=== PATIENT | female | born 1945 | race Caucasian/White ===

== ENCOUNTER 2021-01-07 00:30 | Inpatient (IN) ==
[2021-01-07] MEDS ORDERED: SODIUM CHLORIDE 0.9% 500 ML IV STA (01:19)
[2021-01-07] MEDS ORDERED: ONDANSETRON 4 MG/2 ML VIAL IV STA (01:19)
[2021-01-07] MEDS ORDERED: HYDROmorphone 2 MG/1 ML VIAL IV STA (01:19)
[2021-01-07] MEDS ORDERED: PANTOPRAZOLE 40 MG VIAL IV STA (01:19)
[2021-01-07 01:31] LABS: Basophils % 0.1 % (0.0-0.8); Eosinophils % 0.1 % (0.00-10.9); Hematocrit 45.1 VOL% (35.7-47.0); Hemoglobin 14.7 GM/DL (12.0-16.0); Immature Granulocytes % 0.4 %; Immature Granulocytes Absolute 0.06 #; Lymphocytes # 2.2 10*3/uL (1.4-4.0); Lymphocytes % 13.6 % (21.3-54.2); Mean Corpuscular HGB Conc 32.6 GM/DL (32-36); Mean Corpuscular Volume 91.9 FL (87-102); Mean Platelet Volume 10.7 FL (9.6-12.0); Monocytes % 7.7 % (1.7-12.7); Neutrophils % 78.1 % (38.7-73.9); Platelet Count 258 T/CUMM (130-400); Red Blood Count 4.91 MC/CUMM (3.8-5.5); Red Cell Distribution Width 14.2 % (9.3-17.3); White Blood Count 16.5 T/CUMM (4-12)
[2021-01-07 01:47] LABS: Albumin 3.8 G/DL (3.4-5.0); Bilirubin,Total 0.7 MG/DL (0.20-1.00); Calcium 9.3 MG/DL (8.5-10.1); Osmolality,Calculated 275.7 MOS/KG (273-304); Potassium 3.4 MMOL/L (3.5-5.1)
[2021-01-07 01:51] LABS: Bilirubin,Urine Negative (Negative); Blood, Urine Moderate mg/dL (Negative); Glucose,Urine (UA) Negative (Negative); Hyaline Casts,Urine 2 /LPF (0-3); Ketones,Urine 20 mg/dL (Negative); Mucus,Urine Many /LPF (Occasional); Nitrite,Urine Negative (Negative); Protein,Urine Negative; RBC,Urine 36 /HPF (0-4); Squamous Epithelial Cell,Urine Occasional /HPF (0-10); Urine Appearance Slightly Hazy (Clear); Urine Color Yellow (Yellow); Urine Specific Gravity 1.026 (1.001-1.035); Urine Urobilinogen < 2.0 EU/DL (0.2-1.0)
[2021-01-07] MEDS ORDERED: fentaNYL 100 MCG/2 ML VIAL ONE ×2 (06:48→08:12)
[2021-01-07] MEDS ORDERED: PHENYLEPHRINE 1 MG/10 ML SYRINGE IV ONE (06:48)
[2021-01-07] MEDS ORDERED: SEVOFLURANE 1 UNIT/15 MINUTE INH ONE (06:48)
[2021-01-07] MEDS ORDERED: ACETAMINOPHEN INJ 1,000 MG/100 ML VIAL IV ONE (06:48)
[2021-01-07] MEDS ORDERED: LIDOCAINE 2% 5 ML VIAL ONE (06:48)
[2021-01-07] MEDS ORDERED: propofoL 200 MG/20 ML VIAL IV ONE (06:48)
[2021-01-07] MEDS ORDERED: ONDANSETRON 4 MG/2 ML VIAL ONE (06:48)
[2021-01-07] MEDS ORDERED: ROCURONIUM 50 MG/5 ML VIAL IV ONE (06:48)
[2021-01-07] MEDS ORDERED: SUCCINYLCHOLINE 200 MG/10 ML VIAL ONE (06:49)
[2021-01-07] MEDS ORDERED: ONDANSETRON 4 MG/2 ML VIAL IV PRN (06:53)
[2021-01-07] MEDS ORDERED: ACETAMINOPHEN 325 MG TABLET PO PRN (06:53)
[2021-01-07] MEDS ORDERED: BUPIVACAINE MPF 0.25% 30 ML VIAL ONE (07:19)
[2021-01-07] MEDS ORDERED: TISSUE ADHESIVE 1 EACH APPLICATOR TOP ONE (07:19)
[2021-01-07] MEDS ORDERED: LACTATED RINGERS 1,000 ML IV ONE ×2 (07:19→08:12)
[2021-01-07] MEDS ORDERED: LIDOCAINE 1%/EPI INJ 20 ML VIAL ONE (07:20)
[2021-01-07] MEDS ORDERED: ALBUTEROL INHALER 18 GM INH ONE (07:26)
[2021-01-07] MEDS ORDERED: SUGAMMADEX 200 MG/2 ML VIAL IV ONE (08:01)
[2021-01-07] MEDS ORDERED: DEXAMETHASONE 4 MG/1 ML VIAL ONE (08:03)
[2021-01-07] MEDS: PIPERACILLIN/TAZOBACTAM 3,375 MG in SODIUM CHLORIDE 0.9% 100 ML IV SCH ×3 (08:55→23:25)
[2021-01-07] MEDS: HYDROmorphone 2 MG/1 ML VIAL IV PRN (16:50)
[2021-01-07] MEDS: SODIUM CHLORIDE 0.9% 1,000 ML IV SCH ×2 (16:51→19:17)
[2021-01-07] MEDS: PANTOPRAZOLE 40 MG VIAL IV SCH (19:17)
[2021-01-07] MEDS: ENOXAPARIN 40 MG/0.4 ML SYRINGE SUBCUT SCH (20:50)
[2021-01-08] MEDS: SODIUM CHLORIDE 0.9% 1,000 ML IV SCH ×3 (04:07→17:46)
[2021-01-08] MEDS: HYDROmorphone 2 MG/1 ML VIAL IV PRN ×2 (05:50→23:30)
[2021-01-08 06:15] LABS: Basophils % 0.1 % (0.0-0.8); Eosinophils % 0.3 % (0.00-10.9); Hematocrit 35.8 VOL% (35.7-47.0); Immature Granulocytes % 0.5 %; Immature Granulocytes Absolute 0.07 #; Lymphocytes # 2.8 10*3/uL (1.4-4.0); Lymphocytes % 20.2 % (21.3-54.2); Mean Corpuscular HGB Conc 32.4 GM/DL (32-36); Mean Corpuscular Volume 92.5 FL (87-102); Mean Platelet Volume 10.6 FL (9.6-12.0); Neutrophils % 72.9 % (38.7-73.9); Red Cell Distribution Width 14.4 % (9.3-17.3)
[2021-01-08 06:16] LABS: Albumin 2.5 G/DL (3.4-5.0); Bilirubin,Total 0.5 MG/DL (0.20-1.00); Calcium 8.2 MG/DL (8.5-10.1); Osmolality,Calculated 282.4 MOS/KG (273-304); Potassium 3.2 MMOL/L (3.5-5.1)
[2021-01-08 06:26] LABS: Hemoglobin 11.6 GM/DL (12.0-16.0); Platelet Count 195 T/CUMM (130-400); Red Blood Count 3.87 MC/CUMM (3.8-5.5)
[2021-01-08] MEDS: PANTOPRAZOLE 40 MG VIAL IV SCH (08:06)
[2021-01-08] MEDS: PIPERACILLIN/TAZOBACTAM 3,375 MG in SODIUM CHLORIDE 0.9% 100 ML IV SCH ×3 (08:07→23:22)
[2021-01-08] MEDS: ENOXAPARIN 40 MG/0.4 ML SYRINGE SUBCUT SCH (21:59)
[2021-01-09] MEDS: SODIUM CHLORIDE 0.9% 1,000 ML IV SCH ×2 (00:32→10:44)
[2021-01-09 05:32] LABS: Basophils % 0.4 % (0.0-0.8); Eosinophils # 0.2 10*3/uL (0.0-0.87); Eosinophils % 1.7 % (0.00-10.9); Hematocrit 35.9 VOL% (35.7-47.0); Hemoglobin 11.3 GM/DL (12.0-16.0); Immature Granulocytes % 0.5 %; Immature Granulocytes Absolute 0.05 #; Lymphocytes # 2.7 10*3/uL (1.4-4.0); Lymphocytes % 28.6 % (21.3-54.2); Mean Corpuscular HGB Conc 31.5 GM/DL (32-36); Mean Corpuscular Volume 94.2 FL (87-102); Neutrophils % 60.8 % (38.7-73.9); Platelet Count 198 T/CUMM (130-400); Red Blood Count 3.81 MC/CUMM (3.8-5.5); Red Cell Distribution Width 14.5 % (9.3-17.3); White Blood Count 9.3 T/CUMM (4-12)
[2021-01-09] MEDS: PIPERACILLIN/TAZOBACTAM 3,375 MG in SODIUM CHLORIDE 0.9% 100 ML IV SCH (09:50)
[2021-01-09] MEDS: PANTOPRAZOLE 40 MG VIAL IV SCH (09:52)
[2021-01-09 12:00] VITALS: BP 143/61
[2021-01-09] MEDS: HYDROmorphone 2 MG/1 ML VIAL IV PRN (12:15)
== END 2021-01-09 13:31 | disposition home or self-care (01) | DRG 340 ==
LOC: EDUNIT# → EDBD → N.ED 00:30 → N.EDINP 03:26 → N.3E 05:30
PROVIDERS: ADMIT Surgery; ATTEND Surgery